=== PATIENT | female | born 1985 | race Caucasian/White ===

== ENCOUNTER 2017-03-08 14:52 | Emergency (ER) | payer MEDICAID ==
[2017-03-08 15:25] VITALS: BMI 41.7
[2017-03-08 15:27] VITALS: BP 124/84; PULSE 86; RESP 16; TEMP 98.8; O2SAT 100
--- NOTE | 2017-03-08 15:31 | ED PDOC ---
Arrival/HPI - General Chief Complaint: Lower Extremity Problem/Injury Time Seen by Provider: 03/08/17 14:55 Historian: Patient, Family - History of Present Illness Time/Duration: Prior to Arrival Symptom Onset: Sudden Symptom Course: Unchanged Quality: Aching Severity Level: Moderate Associated Symptoms (Text): 03/08/17 15:30 Patient dropped an 8 pound dumbbell on her right foot and great toe just prior to arrival Past Medical History - Infectious Disease Hx of Infectious Diseases: None - Tetanus Immunization Tetanus Immunization: Unknown - Past Medical History Past Medical History: No Previous - Cardiac Hx Cardiac Disorders: No - Pulmonary Hx Respiratory Disorders: No Hx Asthma: Yes - Neurological Hx Neurological Disorder: No - HEENT Hx HEENT Disorder: No - Renal Hx Renal Disorder: No - Endocrine/Metabolic Hx Endocrine Disorders: No - Hematological/Oncological Hx Blood Disorders: No - Integumentary Hx Dermatological Disorder: No - Musculoskeletal/Rheumatological Hx Musculoskeletal Disorders: No - Gastrointestinal Hx Gastroesophageal Reflux: Yes Other/Comment: haital hernia - Genitourinary/Gynecological Hx Bladder Cancer: No Hx Urinary Tract Infection: Yes - Psychiatric Hx Psychophysiologic Disorder: No Hx Depression: No Hx Emotional Abuse: No Hx Physical Abuse: No Hx Substance Use: No - Past Surgical History Past Surgical History: No Previous - Surgical History Other/Comment: Lasik surgery - Anesthesia Hx Anesthesia Reactions: Yes (vomiting and swelling) Hx Malignant Hyperthermia: No - Suicidal Assessment Feels Threatened In Home Enviroment: No Family/Social History - Physician Review Nursing Documentation Reviewed: Yes Family/Social History: Unknown Family HX Smoking Status: Never Smoked Hx Alcohol Use: No Hx Substance Use: No Hx Substance Use Treatment: No Allergies/Home Meds Allergies/Adverse Reactions: Allergies ANESTHESIA Adverse Reaction (Uncoded 12/27/16 12:29) VOMITING Review of Systems - Physician Review All systems were reviewed & negative as marked: Yes Physical Exam Vital Signs Temp Pulse Resp BP Pulse Ox 03/08/17 15:25 98.8 F 86 16 124/84 100 Temperature: Afebrile Blood Pressure: Normal Pulse: Regular Respiratory Rate: Normal Appearance: Positive for: Well-Appearing, Non-Toxic, Comfortable, Uncomfortable , Other (Obese) Pain Distress: Mild Mental Status: Positive for: Alert and Oriented X 3 - Systems Exam Lower Extremity: Present: NORMAL PULSES, Normal ROM, Tenderness, Swelling, Neurovascularly Intact, Other (Distal right foot pain and swelling tenderness and ecchymosis of her great toenail). No: Edema, CALF TENDERNESS, Cyanosis, Keren's Sign, Erythema, Deformity Skin: Present: Warm, Dry, Normal Color. No: Rashes Medical Decision Making - RAD Interpretation Radiology Orders: 03/08/17 15:30 FOOT RIGHT 3 VIEWS ROUTINE [RAD] Stat Right foot 3 view shows no fracture or dislocation Director Of Graduate Admissions: ED Physician Disposition/Present on Arrival - Present on Arrival Any Indicators Present on Arrival: No History of DVT/PE: No History of Uncontrolled Diabetes: No Urinary Catheter: No History of Decub. Ulcer: No History Surgical Site Infection Following: None - Disposition Have Diagnosis and Disposition been Completed?: Yes Diagnosis: Foot contusion Disposition: HOME/ ROUTINE Disposition Time: 15:42 Patient Plan: Discharge Condition: GOOD Discharge Instructions (ExitCare): Foot Contusion (ED) Additional Instructions: Rest ice and elevation. Tylenol or Advil as directed on bottle as needed. Follow with PMD. Follow-up in the ER as needed. Prescriptions: Tramadol HCl [Ultram] 50 mg PO Q6 PRN #14 tab PRN Reason: Pain
--- NOTE | 2017-03-08 15:46 | RAD ---
PROCEDURE: Right Foot Radiographs. HISTORY: trauma COMPARISON: None. FINDINGS: BONES: Normal. No fracture. JOINTS: Normal. SOFT TISSUES: Normal. OTHER FINDINGS: None. IMPRESSION: Normal right foot radiographs.
== END 2017-03-08 16:28 | disposition home or self-care (01) ==
LOC: ED 14:52
DX: S90.31XA Contusion of right foot, initial encounter (principal); W22.8XXA Striking against or struck by other objects, initial encounter; Y92.9 Unspecified place or not applicable